=== PATIENT | male | born 1995 | race Caucasian/White ===

== ENCOUNTER 2018-07-02 17:30 | Emergency (ER) | payer OTHER, SELFPAY ==
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
[2018-07-02 17:58] LABS: Urine Blood NEGATIVE (NEG); Urine Glucose NEGATIVE (NEG); Urine Protein NEGATIVE (NEG); Urine Specific Gravity 1.015 (1.005-1.030)
[2018-07-02] MEDS ORDERED: DIAZEPAM 5 MG TABLET ONE (18:04)
[2018-07-02] MEDS ORDERED: KETOROLAC 30 MG/ML INJ ONE (18:04)
[2018-07-02 18:37] VITALS: BP 163/89; TEMP 98.2; O2SAT 100
== END 2018-07-02 18:16 | disposition home or self-care (01) ==
LOC: ER 17:30
DX: M62.830 Muscle spasm of back (principal); V49.40XA Driver injured in collision with unspecified motor vehicles in traffic accident, initial encounter
CPT/HCPCS: 81003; 96372; 99283

== ENCOUNTER 2018-08-01 16:55 | Emergency (ER) | payer OTHER, SELFPAY ==
--- NOTE | 2018-08-01 19:00 | RAD REPORT ---
EXAM DESCRIPTION: RAD - Elbow Left 3 View - 08/01/2018 6:37 pm CLINICAL HISTORY: Left elbow pain status post trauma FINDINGS: No fracture or dislocation is seen.
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
[2018-08-01 20:45] VITALS: TEMP 97.9
[2018-08-01 20:46] VITALS: BP 126/83; O2SAT 100
== END 2018-08-01 19:53 | disposition home or self-care (01) ==
LOC: ER 16:55
DX: S53.492A Other sprain of left elbow, initial encounter (principal); W17.89XA Other fall from one level to another, initial encounter; Y93.89 Activity, other specified; Y92.9 Unspecified place or not applicable
CPT/HCPCS: 99283

== ENCOUNTER 2022-08-27 20:23 | Emergency (ER) | payer BC ==
[2022-08-27] MEDS ORDERED: IBUPROFEN 400 MG TAB ONE (21:44)
--- NOTE | 2022-08-27 22:03 | RAD REPORT ---
EXAM DESCRIPTION: RAD - Wrist Right 3 View - 08/27/2022 9:48 pm CLINICAL HISTORY: PAIN COMPARISON: No comparisons TECHNIQUE: Right wrist, 3 views. FINDINGS: Chip fracture arising from the dorsal articular margin of the distal radius. There is no d islocation or periosteal reaction noted. No other significant bony finding. No foreign body. Soft tis sarah swelling about the wrist. IMPRESSION: Chip fracture arising from the dorsal articular margin of the distal radius.
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
[2022-08-27 22:55] VITALS: TEMP 99.1
[2022-08-27 22:57] VITALS: O2SAT 99
[2022-08-27 22:58] VITALS: BP 159/98
== END 2022-08-27 22:50 | disposition home or self-care (01) ==
LOC: ER 20:23
PROC: 2W3CX1Z Immobilization of Right Lower Arm using Splint (ICD-10-PCS; principal; 2022-08-27)
DX: S52.501A Unspecified fracture of the lower end of right radius, initial encounter for closed fracture (principal)
CPT/HCPCS: 99284